=== PATIENT | female | born 1975 | race Caucasian/White ===

== ENCOUNTER 2018-01-03 08:42 | Emergency (ER) | payer OTHER ==
[~2018-01-03] VITALS: Ht 157.5 cm; Wt 54.0 kg
[2018-01-03 08:44] VITALS: TEMP 36.5; Ht 157.5 cm; Wt 54.0 kg
[2018-01-03] MEDS ORDERED: ALUMINUM/MAGNESIUM SUSP 30 ML UDC PO STA (09:09)
[2018-01-03] MEDS ORDERED: LIDOCAINE HCL 2% VISC SOLN 20 ML UDC PO STA (09:09)
[2018-01-03] MEDS ORDERED: LORA-741 PO (09:10)
[2018-01-03] MEDS ORDERED: SERT1TAB68 PO (09:10)
[2018-01-03 09:24] LABS: BASO % 0.1 %; BASO ABS # 0.01 K/uL (0-0.2); EOS % 0.9 %; EOS ABS # 0.11 K/uL (0-0.5); HEMATOCRIT 44.9 % (37-47); HEMOGLOBIN 15.4 g/dL (12.0-16.0); IG# 0.02 K/uL (0.00-0.02); LYMPH % 4.1 %; LYMPH ABS # 0.52 K/uL (1.2-3.4); MEAN CELL VOLUME 96.6 fL (80-100); MEAN CORPUSCULAR HEMOGLOBIN 33.1 pg (25-34); MEAN CORPUSCULAR HGB CONC 34.3 g/dl (32-36); MEAN PLATELET VOLUME 9.1 fL (7.4-10.4); MONO % 6.3 %; MONO ABS # 0.81 K/uL (0.11-0.59); NEUT % 88.4 %; PLATELET COUNT 251 K/uL (130-400); RED CELL DISTRIBUTION WIDTH CV 11.9 % (11.5-14.5); WHITE BLOOD COUNT 12.77 K/uL (4.8-10.8)
[2018-01-03 09:32] LABS: ALBUMIN 3.9 gm/dl (3.4-5.0); ALT/SGPT 24 U/L (12-78); AST/SGOT 15 U/L (15-37); BLOOD UREA NITROGEN 7 mg/dl (7-18); CALCIUM 8.6 mg/dl (8.5-10.1); CARBON DIOXIDE 25 mmol/L (21-32); GLUCOSE 116 mg/dl (70-99); LIPASE 100 U/L (73-393); POTASSIUM 3.7 mmol/L (3.5-5.1); SODIUM 136 mmol/L (136-145)
--- NOTE | 2018-01-03 09:33 | DIAGNOSTIC IMAGING REPORT ---
CHEST ONE VIEW PORTABLE HISTORY: Generalized abdominal pain. COMPARISON: None. FINDINGS: The lungs are clear. Cardiac silhouette is normal in size. No pleural effusions. No pneumothorax. IMPRESSION: No acute process. Electronically signed by: Jericho Lugo M.D. 01/03/2018 9:32 AM Dictated Date/Time: 01/03/2018 9:30 AM
[2018-01-03 09:38] LABS: ALKALINE PHOSPHATASE 55 U/L (45-117); CKMB 0.6 ng/ml (0.5-3.6); TOTAL PROTEIN 7.4 gm/dl (6.4-8.2)
[2018-01-03] MEDS ORDERED: HYDROmorphone INJ 0.5 MG/0.5 ML SYR IV STA (09:55)
[2018-01-03 09:59] LABS: PTT PATIENT 23.9 SECONDS (21.0-31.0)
--- NOTE | 2018-01-03 10:52 | DIAGNOSTIC IMAGING REPORT ---
ABDOMINAL ULTRASOUND, RIGHT UPPER QUADRANT HISTORY: Epigastric pain, bilious vomiting. COMPARISON: None. FINDINGS: Liver morphology is normal. No hepatic lesions are identified. Mild dilatation of the common bile duct is noted. The common bile duct measures 1 cm in caliber. No common bile duct calculi are identified by sonography. There is no pancreatic ductal dilatation. The pancreas is within normal limits by sonography. The gallbladder is normal. No gallstones are identified. There is no right hydronephrosis. IMPRESSION: 1. Mild dilatation of the common bile duct. No choledocholithiasis identified by sonography. The findings could be correlated with obstructive liver function tests. 2. Normal sonographic appearance of the gallbladder. No gallstones. Electronically signed by: Tobin Díaz M.D. 01/03/2018 10:51 AM Dictated Date/Time: 01/03/2018 10:48 AM
[2018-01-03] MEDS ORDERED: FAMOTIDINE 20MG/5ML IV PUSH IV STA (11:42)
[2018-01-03] MEDS ORDERED: HYDROmorphone INJ 0.5 MG/0.5 ML SYR IV PRN (11:45)
[2018-01-03] MEDS ORDERED: OPTIRAY 320 IV PRN (12:00)
--- NOTE | 2018-01-03 12:31 | DIAGNOSTIC IMAGING REPORT ---
(CHEST FOR PE) ANGIO WITH CT DOSE: 185.95 mGy.cm HISTORY: Chest pain dyspnea TECHNIQUE: Multiaxial CT images of the chest were performed following the intravenous administration of contrast to evaluate the pulmonary arteries. Maximal intensity projection images were also obtained. A dose lowering technique was utilized adhering to the principles of ALARA. COMPARISON STUDY: None. FINDINGS: There is a normal caliber thoracic aorta with no evidence for dissection. There is no evidence for pulmonary embolus. No pleural effusions. No pneumothorax. The liver and spleen are unremarkable. No mediastinal or hilar lymphadenopathy. The central airways are patent. The lungs are clear. IMPRESSION: No evidence for pulmonary embolus. The lungs are clear. The above report was generated using voice recognition software. It may contain grammatical, syntax or spelling errors. Electronically signed by: Jose Muhammad M.D. 01/03/2018 12:30 PM Dictated Date/Time: 01/03/2018 12:25 PM
[2018-01-03] MEDS ORDERED: ONDA4TAB10 SL (13:09)
[2018-01-03] MEDS ORDERED: OXYC1TAB3 PO (13:09)
[2018-01-03] MEDS ORDERED: RANI150T85 PO (13:09)
[2018-01-03 13:24] VITALS: BP 141/90; PULSE 73; O2SAT 97
--- NOTE | 2018-01-03 15:28 | EMERGENCY ROOM VISIT NOTE ---
History First contact with patient: 08:57 Chief Complaint: CHEST PAIN Stated Complaint: PAIN BETWEEN RIB CAGE Nursing Triage Summary: pt has had intermittent pain for approx 3 days. pain is over sternal bone, no radiation. not related to meals or any other events. denies sob, nausea or diaphoresis. awoke her at 03 am today History of Present Illness The patient is a 42 year old female who presents to the Emergency Room with complaints of epigastric pain, nausea and vomiting. The patient reports that her pain has been intermittent for the past 3 days. The patient reports that the pain occasionally feels like it radiates into the center of the back. The patient had 3 episodes of vomiting this morning. She reports that it looks yellow like bile. She did not notice any bright red blood or coffee-ground emesis. The patient has not noticed any darkening stool, and has had no diarrhea or constipation. The patient denies history of reflux or peptic ulcer disease. The pain does not radiate into the central or upper chest/throat region. The patient denies any cardiopulmonary history or strong family history of heart disease. The patient denies any significant caffeine, alcohol or NSAIDs use. The pain does seem to be somewhat improved in a position, or when sitting up. The patient denies any other recent upper respiratory infections or cough. The patient has had some mild shortness of breath over the past 24 hours secondary to pain; however, she denies any worsening pain with deep breathing. The patient currently rates her discomfort a 5 out of 10, with worse pain be an 8 out of 10. Review of Systems HEENT: Denies dizziness, visual problems, hearing loss, tinnitus. Denies difficulty swallowing or oral lesions. PULMONARY: Denies cough, sputum production or hemoptysis. CARDIOVASCULAR: Denies chest tightness, palpitations, dyspnea on exertion, orthopnea or peripheral edema. GASTROINTESTINAL: Denies diarrhea or constipation, otherwise see history of present illness. GENITOURINARY: Denies dysuria, frequency, urgency or nocturia. NEUROLOGIC: Denies history of epilepsy, CVA, TIA or chronic headaches. MUSCULOSKELETAL: Denies history of joint tenderness/swelling. SKIN: Denies rashes or lesions. PSYCHIATRIC: Denies history of depression or mental illness. ENDOCRINE: Denies history of diabetes or thyroid disorders. Past Medical/Surgical History Medical Problems: (1) No significant past medical history Surgical Problems: (1) No history of previous surgery Family History Unremarkable Social History Alcohol Use: occasionally Marital Status: Occupation Status: employed Current/Historical Medications Scheduled Lorazepam (Ativan), 0.5 MG PO Q6H Ondasetron Odt (Zofran Odt), 4 MG SL Q6H Ranitidine (Zantac), 150 MG PO BID Sertraline Hcl (Zoloft), 100 MG PO DAILY Scheduled PRN Oxycodone Ir (Roxicodone Ir), 1-2 TAB PO Q4H PRN for Pain Physical Exam Vital Signs Date Time Temp Pulse Resp B/P (MAP) Pulse Ox O2 Delivery O2 Flow Rate FiO2 01/03/18 13:24 73 18 141/90 97 Room Air 01/03/18 11:42 74 16 98 Room Air 01/03/18 11:12 70 18 98 01/03/18 11:00 155/81 01/03/18 10:59 72 16 155/81 98 Room Air 01/03/18 10:58 177/83 01/03/18 09:42 74 14 98 01/03/18 09:24 76 98 156/102 98 01/03/18 09:23 156/102 01/03/18 09:14 Room Air 01/03/18 09:12 70 16 01/03/18 09:04 Room Air 01/03/18 08:59 72 01/03/18 08:44 36.5 77 16 159/93 98 Room Air Physical Exam CONSTITUTIONAL: Healthy and well nourished. Alert and oriented X 3 with positive affect. Patient appears in moderate discomfort. HEENT: Normocephalic, atraumatic. Pupils equal, round and reactive. Ears and nares are clear. No scleral icterus or conjunctival injection/pallor. NECK: Full active range of motion without discomfort. No JVD or carotid bruits. RESPIRATORY: Clear to auscultation bilaterally with no wheezing, crackles, rhonchi or stridor. CARDIOVASCULAR: Regular rate and rhythm with no murmurs, rubs or gallops. GASTROINTESTINAL: Bowel sounds present in all quadrants. Should has epigastric tenderness to palpation. No obvious hepatosplenomegaly. Negative CVA tenderness. No abdominal rigidity, guarding or rebound. MUSCULOSKELETAL: Full range of motion of all joints without discomfort. Patient has no tenderness to palpation over the costochondral joints. She does have mild tenderness to palpation of the lower anterior rib margins bilaterally. INTEGUMENTARY: No rash or other significant dermatologic conditions noted. HEMATOLOGIC: No ecchymosis or petechiae noted. NEUROLOGIC: No focal neurologic deficits noted. Medical Decision & Procedures ER Provider Diagnostic Interpretation: My interpretation of an initial ECG shows a normal sinus rhythm of 71 bpm with inverted T waves in inferior leads. No ST elevations noted. No prior ECGs are available for comparison. A repeat ECG at 3 hours shows normal upright T waves in inferior leads, and no additional ST elevation or other conduction abnormalities. My interpretation of a portable chest x-ray does not show any consolidations, pneumothorax or cardiac prominence. Radiologist report is as follows: CHEST ONE VIEW PORTABLE HISTORY: Generalized abdominal pain. COMPARISON: None. FINDINGS: The lungs are clear. Cardiac silhouette is normal in size. No pleural effusions. No pneumothorax. IMPRESSION: No acute process. Abdomen ultrasound does not show any evidence for cholecystitis or cholelithiasis. The common bile duct is dilated at 1 cm. No pancreatic ductal dilatation is noted. Radiologist report is as follows: ABDOMINAL ULTRASOUND, RIGHT UPPER QUADRANT HISTORY: Epigastric pain, bilious vomiting. COMPARISON: None. FINDINGS: Liver morphology is normal. No hepatic lesions are identified. Mild dilatation of the common bile duct is noted. The common bile duct measures 1 cm in caliber. No common bile duct calculi are identified by sonography. There is no pancreatic ductal dilatation. The pancreas is within normal limits by sonography. The gallbladder is normal. No gallstones are identified. There is no right hydronephrosis. IMPRESSION: 1. Mild dilatation of the common bile duct. No choledocholithiasis identified by sonography. The findings could be correlated with obstructive liver function tests. 2. Normal sonographic appearance of the gallbladder. No gallstones. CT angiography of the chest is negative for pulmonary emboli or other consolidations. Radiologist report is as follows: (CHEST FOR PE) ANGIO WITH CT DOSE: 185.95 mGy.cm HISTORY: Chest pain dyspnea TECHNIQUE: Multiaxial CT images of the chest were performed following the intravenous administration of contrast to evaluate the pulmonary arteries. Maximal intensity projection images were also obtained. A dose lowering technique was utilized adhering to the principles of ALARA. COMPARISON STUDY: None. FINDINGS: There is a normal caliber thoracic aorta with no evidence for dissection. There is no evidence for pulmonary embolus. No pleural effusions. No pneumothorax. The liver and spleen are unremarkable. No mediastinal or hilar lymphadenopathy. The central airways are patent. The lungs are clear. IMPRESSION: No evidence for pulmonary embolus. The lungs are clear. Laboratory Results 01/03/18 08:57 Red Blood Count 4.65, Mean Corpuscular Volume 96.6, Mean Corpuscular Hemoglobin 33.1, Mean Corpuscular Hemoglobin Concent 34.3, Mean Platelet Volume 9.1, Neutrophils (%) (Auto) 88.4, Lymphocytes (%) (Auto) 4.1, Monocytes (%) (Auto) 6.3, Eosinophils (%) (Auto) 0.9, Basophils (%) (Auto) 0.1, Neutrophils # (Auto) 11.30, Lymphocytes # (Auto) 0.52, Monocytes # (Auto) 0.81, Eosinophils # (Auto) 0.11, Basophils # (Auto) 0.01 01/03/18 08:57 Test 01/03/18 08:57 01/03/18 11:45 White Blood Count 12.77 K/uL (4.8-10.8) Red Blood Count 4.65 M/uL (4.2-5.4) Hemoglobin 15.4 g/dL (12.0-16.0) Hematocrit 44.9 % (37-47) Mean Corpuscular Volume 96.6 fL (80-100) Mean Corpuscular Hemoglobin 33.1 pg (25-34) Mean Corpuscular Hemoglobin Concent 34.3 g/dl (32-36) Platelet Count 251 K/uL (130-400) Mean Platelet Volume 9.1 fL (7.4-10.4) Neutrophils (%) (Auto) 88.4 % Lymphocytes (%) (Auto) 4.1 % Monocytes (%) (Auto) 6.3 % Eosinophils (%) (Auto) 0.9 % Basophils (%) (Auto) 0.1 % Neutrophils # (Auto) 11.30 K/uL (1.4-6.5) Lymphocytes # (Auto) 0.52 K/uL (1.2-3.4) Monocytes # (Auto) 0.81 K/uL (0.11-0.59) Eosinophils # (Auto) 0.11 K/uL (0-0.5) Basophils # (Auto) 0.01 K/uL (0-0.2) RDW Standard Deviation 42.0 fL (36.4-46.3) RDW Coefficient of Variation 11.9 % (11.5-14.5) Immature Granulocyte % (Auto) 0.2 % Immature Granulocyte # (Auto) 0.02 K/uL (0.00-0.02) Prothrombin Time 10.7 SECONDS (9.0-12.0) Prothromb Time International Ratio 1.0 (0.9-1.1) Activated Partial Thromboplast Time 23.9 SECONDS (21.0-31.0) Partial Thromboplastin Ratio 0.9 D-Dimer 590 ug/L FEU (0-500) Anion Gap 8.0 mmol/L (3-11) Est Creatinine Clear Calc Drug Dose 82.0 ml/min Estimated GFR () 123.0 Estimated GFR (Non- 106.1 BUN/Creatinine Ratio 10.0 (10-20) Calcium Level 8.6 mg/dl (8.5-10.1) Total Bilirubin 1.5 mg/dl (0.2-1) Direct Bilirubin 0.3 mg/dl (0-0.2) Aspartate Amino Transf (AST/SGOT) 15 U/L (15-37) Alanine Aminotransferase (ALT/SGPT) 24 U/L (12-78) Alkaline Phosphatase 55 U/L (45-117) Total Creatine Kinase 64 U/L (26-192) Creatine Kinase MB 0.6 ng/ml (0.5-3.6) Creatine Kinase MB Ratio 0.9 (0-3.0) Total Protein 7.4 gm/dl (6.4-8.2) Albumin 3.9 gm/dl (3.4-5.0) Lipase 100 U/L (73-393) Troponin I < 0.015 ng/ml (0-0.045) The above labs were reviewed. Repeat troponin at 3 hours apart were normal. D- dimer is mildly elevated. LFTs are normal except for direct and total bilirubin being mildly elevated. A mild leukocytosis is also noted. Medications Administered Medications (Trade) Dose Ordered Sig/Gregory Route Start Time Stop Time Status Last Admin Dose Admin Lidocaine HCl (Viscous Lidocaine 2% Soln) 10 ml NOW STAT PO 01/03/18 09:09 01/03/18 09:12 DC 01/03/18 09:22 10 ML Al Hydroxide/Mg Hydroxide (Maalox Susp) 30 ml NOW STAT PO 01/03/18 09:09 01/03/18 09:12 DC 01/03/18 09:22 30 ML Hydromorphone HCl (Dilaudid Inj) 0.5 mg NOW STAT IV 01/03/18 09:55 01/03/18 09:56 DC 01/03/18 09:59 0.5 MG Hydromorphone HCl (Dilaudid Inj) 0.5 mg ONE PRN IV 01/03/18 11:45 01/03/18 13:40 DC 01/03/18 11:59 0.5 MG Famotidine (Pepcid 20mg Iv Push) 20 mg ONE STAT IV 01/03/18 11:42 01/03/18 11:45 DC 01/03/18 11:59 20 MG ED Course Patient history and physical exam were performed. Nurse's notes were reviewed. Vital signs were reviewed, showing an elevated blood pressure of 159/93. O2 saturation is normal, and the patient is not tachycardic or febrile. IV access was established, and labs were drawn. An ECG shows possible ischemic changes in inferior leads. No prior ECGs were available for comparison. Portable chest x-ray was normal. Review of labs shows a mild leukocytosis and elevated bilirubins. The patient was administered a GI cocktail. This provided approximately 15 minutes of relief before her pain started to come back. The patient was administered Dilaudid 0.5 mg IVP, and an ultrasound was suggested given her elevated bilirubin levels. The ultrasound showed a dilated common bile duct, otherwise no evidence for gallbladder sludge or stones. Troponin, repeated 3 hours apart, were normal. D-dimer was mildly elevated. Chest CT angiography was performed because of the elevated d-dimer level, and angiography studies were normal. Remaining electrolytes were otherwise normal. Repeat ECG at 3 hours showed upright T waves and no other acute changes. The patient was administered an additional Dilaudid 0.5 mg IVP per causing persistent pain. She denied any pain extending into the chest or back. Workup findings were discussed with Dr. Pedraza, ED attending physician, who agrees with workup and outpatient plan of care. The patient was encouraged to contact her PCP for further reevaluation. I suggested that she have a repeat ECG in the office, possibly with cardiology referral. I also suggested gastroenterology referral. The patient was provided prescriptions for Zantac, Zofran ODT and OxyIR 5 mg. She was encouraged to refrain from NSAIDs, alcohol and caffeine use. She may also use Maalox or Gaviscon for additional relief. She was instructed to return to the emergency department for any progressively worsening symptoms. The patient was happy with plan of care, voiced understanding of all discharge instructions, and rated her discomfort a 3 out of 10 at the time of discharge. Medical Decision The patient presents to the emergency Department with primary complaint of epigastric pain. Based on today's workup, I suspect gastric etiology. Differentials considered included peptic ulcer disease. The patient has not had any coffee-ground emesis or hematemesis that would suggest bleeding ulcer. Laboratory studies are not suggestive of pancreatitis or overt hepatitis. The patient does have a dilated common bile duct on ultrasound, and with elevated bilirubin levels, additional biliary dysfunction cannot be ruled out. The patient may require further testing, including HIDA scan or EGD. The patient did initially have inverted T waves on inferior leads, however repeat ECG was normal. Her troponin I is are also normal. Since the patient has had this discomfort for the past 3 days, I do not suspect a significant cardiac event. CT scan of the chest does not show any evidence for pulmonary emboli or consolidations. Clinical exam is not suggestive of musculoskeletal etiology. [place] Drug Monitoring Program Search Results: patient reviewed within database Medication Reconcilliation Current Medication List: was personally reviewed by me Blood Pressure Screening Patient's blood pressure: Normal blood pressure Impression Primary Impression: Epigastric abdominal pain Departure Information Prescriptions Ranitidine (Zantac) 150 Mg Tab 150 MG PO BID, #30 TAB Prov: Mitchell Todd PA 01/03/18 Ondasetron Odt (ZOFRAN ODT) 4 Mg Tab 4 MG SL Q6H for Nausea, #10 TAB Prov: Mitchell Todd PA 01/03/18 Oxycodone Ir (Roxicodone Ir) 5 Mg Tab 1-2 TAB PO Q4H Y for Pain, #15 TAB For Initial Treatment Prov: Mitchell Todd PA 01/03/18 Referrals Laura Sanchez PA-C (PCP) Patient Instructions [facility]
== END 2018-01-03 13:37 | disposition home or self-care (01) ==
LOC: C.EDA 08:48 → MERGE 08:48 → C.EDA 13:37
DX: R10.13 Epigastric pain (principal); Z79.899 Other long term (current) drug therapy